=== PATIENT | female | born 1995 | race African-American/Black ===

== ENCOUNTER 2020-10-28 18:00 | Inpatient (IN) | payer OTHER ==
[~2020-10-28] VITALS: Ht 167.6 cm; Wt 93.2 kg
[2020-10-28] MEDS ORDERED: ACETAMINOPHEN 325 MG TABLET. PO PRN (18:45)
[2020-10-28] MEDS ORDERED: ONDANSETRON PF 4 MG/2 ML VIAL. IVP PRN (18:45)
[2020-10-28] MEDS ORDERED: MORPHINE SULFATE 4 MG/ML INJ. IV PRN (18:45)
[2020-10-28 18:55] VITALS: BP 112/61
[2020-10-28 18:57] VITALS: BP 117/74
--- NOTE | 2020-10-28 19:02 | NUR ---
Consult called to Dr. Burch. Message left with answering service
[2020-10-28] MEDS ORDERED: MULT-735 PO (19:09)
[2020-10-28] MEDS: IV DEXTROSE 5% - 0.9 % NACL 1,000 ML IV SCH (19:26)
[2020-10-28] MEDS: PIPERACILLIN/TAZOBACTAM 3.375 GM in IV NORMAL SALINE 50ML 50 ML IV SCH (19:30)
[2020-10-28] MEDS ORDERED: IV DEXTROSE 5 %-0.45 % NACL 1,000 ML IV SCH (20:00)
[2020-10-28] MEDS: LACTOBACILLUS RHAMNOSUS GG 1 CAPSULE. PO SCH (21:36)
[2020-10-28 23:18] VITALS: BP 119/80
[2020-10-29] VITALS (15 sets, daily range): BP systolic 115–140; BP diastolic 61–82
[2020-10-29] MEDS: PIPERACILLIN/TAZOBACTAM 3.375 GM in IV NORMAL SALINE 50ML 50 ML IV SCH ×4 (00:25→18:12)
[2020-10-29] MEDS: LACTOBACILLUS RHAMNOSUS GG 1 CAPSULE. PO SCH ×2 (07:25→20:47)
[2020-10-29] MEDS ORDERED: SUCCINYLCHOLINE 200 MG/10 ML VIAL. ONE ×2 (07:28)
[2020-10-29] MEDS ORDERED: PROPOFOL 10 MG/ML (20ML) VIAL. IV ONE ×2 (07:28)
[2020-10-29] MEDS ORDERED: ONDANSETRON PF 4 MG/2 ML VIAL. ONE ×2 (07:28)
[2020-10-29] MEDS ORDERED: NEOSTIGMINE METHYLSULFATE 5 MG/5 ML SYRINGE. ONE ×2 (07:28→09:35)
[2020-10-29] MEDS ORDERED: LIDOCAINE 2% PF 5 ML VIAL. ONE ×2 (07:28)
[2020-10-29] MEDS ORDERED: GLYCOPYRROLATE 1 MG/5 ML VIAL. ONE ×2 (07:28→09:35)
[2020-10-29] MEDS ORDERED: ROCURONIUM 50 MG/5 ML VIAL. ONE ×2 (07:28→07:29)
[2020-10-29] MEDS ORDERED: DEXAMETHASONE SOD PHOS 4 MG/ML VIAL ONE ×2 (07:28)
[2020-10-29] MEDS ORDERED: SEVOFLURANE 61 TO 120 MINUTES. IH ONE ×2 (07:28→09:23)
[2020-10-29] MEDS ORDERED: fentaNYL PF VIAL 100 MCG/2 ML VIAL ONE ×3 (07:28→10:14)
[2020-10-29] MEDS ORDERED: PROCHLORPERAZINE 10 MG/2 ML VIAL. IVP PRN (08:15)
[2020-10-29] MEDS ORDERED: fentaNYL PF VIAL 100 MCG/2 ML VIAL IVP PRN (08:15)
[2020-10-29] MEDS ORDERED: MORPHINE SULFATE 2 MG/ML INJ. IVP PRN (08:15)
[2020-10-29] MEDS ORDERED: IV RINGERS,LACTATED 1000ML 1,000 ML IV SCH (08:15)
[2020-10-29] MEDS ORDERED: HYDROmorphone 2 MG/ML VIAL IVP PRN (08:15)
[2020-10-29] MEDS ORDERED: BUPIVACAINE-EPI 0.25%-1:200000 MPF 30 ML VIAL. ONE (08:31)
--- NOTE | 2020-10-29 08:32 | PDOC2 ---
CONSULT Date of Consult Date of Consult DATE: 10/29/20 TIME: 08:29 Reason for Consult Reason for Consult: Abdominal pain Referring Physician Referring Physician: Shahab Identification/Chief Complaint Chief Complaint Abdominal pain Source Source: Chart review, Patient History of Present Illness Reason for Visit: 25-year-old female with 3-day history of abdominal pain mostly right-sided came to the emergency department at [facility] had a mildly elevated white count and low-grade fevers CT scan at that time showed dilated appendix with some periappendiceal fluid she was admitted to the hospital for observation her pain had not improved repeat CT scan was performed which showed slightly more fluid similar findings she was transferred to [facility] for evaluation. This morning she is feeling okay still having some right-sided abdominal pain Past Medical History Cardiovascular: No pertinent hx Pulmonary: No pertinent hx GI: No pertinent hx Heme/Onc: No pertinent hx Hepatobiliary: No pertinent hx Psych: No pertinent hx Rheumatologic: No pertinent hx Infectious disease: No pertinent hx ENT: No pertinent hx Renal/: No pertinent hx Endocrine: No pertinent hx Dermatology: No pertinent hx Past Surgical History Past Surgical History: No pertinent history Family History Family History: No Significant Social History Social History: Parent No ALCOHOL: none Drugs: None Lives: with Family Current Medications Current Medications Current Medications Acetaminophen (Tylenol) 650 mg PRN Q6HRS PRN PO MILD PAIN / TEMP > 100.3'F; Start 10/28/20 at 18:45 Dextrose/Sodium Chloride 1,000 ml @ 100 mls/hr Q10H IV ; Start 10/28/20 at 20:00; Stop 10/28/20 at 19:15; Status DC Lactobacillus Rhamnosus (Culturelle) 1 cap BID PO Last administered on 10/28/20at 21:36; Start 10/28/20 at 21:00 Morphine Sulfate (Morphine Sulfate) 4 mg PRN Q2HR PRN IV PAIN; Start 10/28/20 at 18:45 Ondansetron HCl (Zofran) 4 mg PRN Q6HRS PRN IVP NAUSEA/VOMITING; Start 10/28/20 at 18:45 Piperacillin Sod/ Tazobactam Sod 3.375 gm/Sodium Chloride 50 ml @ 100 mls/hr Q6HRS IV Last administered on 10/29/20at 06:22; Start 10/28/20 at 19:00 Dextrose/Sodium Chloride 1,000 ml @ 100 mls/hr Q10H IV Last administered on 10/28/20at 19:26; Start 10/28/20 at 20:00 Fentanyl Citrate (Fentanyl 2ml Vial) 25 mcg PRN Q5MIN PRN IVP MILD PAIN 1-3; Start 10/29/20 at 08:15; Stop 10/30/20 at 08:14 Fentanyl Citrate (Fentanyl 2ml Vial) 50 mcg PRN Q5MIN PRN IVP MODERATE PAIN 4- 6; Start 10/29/20 at 08:15; Stop 10/30/20 at 08:14 Morphine Sulfate (Morphine Sulfate) 1 mg PRN Q10MIN PRN IVP SEVERE PAIN 7-10; Start 10/29/20 at 08:15; Stop 10/30/20 at 08:14 Ringer's Solution 1,000 ml @ 30 mls/hr Q24H IV ; Start 10/29/20 at 08:15; Stop 10/29/20 at 20:14 Hydromorphone HCl (Dilaudid) 0.5 mg PRN Q10MIN PRN IVP SEVERE PAIN 7-10, 2nd CHOICE; Start 10/29/20 at 08:15; Stop 10/30/20 at 08:14 Prochlorperazine Edisylate (Compazine) 5 mg PACU PRN PRN IVP NAUSEA, MRX1; Start 10/29/20 at 08:15; Stop 10/30/20 at 08:14 Active Scripts Active Reported One-Daily Multi-Vitamin (Multivitamin) 1 Each Tablet 1 Tab PO DAILY 30 Days Allergies Allergies: Coded Allergies: ketorolac (Verified Allergy, Intermediate, 10/28/20) ROS General: YES: Malaise Gastrointestinal: Yes Nausea, Yes Abdominal Pain Physical Exam General: Alert, Oriented X3, Cooperative, mild distress HEENT: Atraumatic, EOMI Lungs: Clear to auscultation, Normal air movement Heart: Regular rate, No murmurs Abdomen: Normal bowel sounds, Soft, Other (Tender to palpation right lower quadrant no peritoneal signs) Extremities: No edema Skin: No significant lesion Neuro: Normal speech Psych/Mental Status: Mental status NL Vitals VITALS Vital Signs Date Time Temp Pulse Resp B/P (MAP) Pulse Ox O2 Delivery O2 Flow Rate FiO2 10/29/20 07:40 Room Air 10/29/20 03:18 97.9 81 16 125/61 (82) 99 97.9 Assessment/Plan Assessment/Plan Acute appendicitis plan laparoscopic appendectomy ANJALI ZACARIAS MD Oct 29, 2020 08:32
--- NOTE | 2020-10-29 09:42 | PDOC4 ---
Operative Note Operative Note Date: October 292020 at 939 Preoperative diagnosis: Acute appendicitis Postoperative diagnosis: Same Procedure: Laparoscopic appendectomy Surgeon: Marcin Specimen: Appendix Dictation: Patient is a 25-year-old female was mated to the hospital with right lower quadrant abdominal pain and equivocal CT scan findings. Procedure of laparoscopic appendectomy was explained to the patient detail risk benefits were also discussed including bleeding infection injury to intra-abdominal contents possible necessitating further open operations alternatives to this procedure also discussed with the patient who seemed to understand and gave a verbal and written consent to have the procedure performed. Patient was taken to the operating room placed in the supine position general anesthesia was initiated once patient was sleeping intubated her abdomen was prepped and draped usual sterile fashion using ChloraPrep. Area just below the umbilicus was injected qu arter percent Marcaine with epinephrine incision was made 11 blade scalpel and varies needle was placed within the abdomen creating pneumoperitoneum once this was complete 12 mm port was placed and a 5 mm camera is placed within the abdomen a 5 mm port was placed low in the midline and a 5 mm port was placed in the right midabdomen all under direct visualization. The appendix was grasped retracted towards the anterior abdominal wall a window was propagated the base of the appendix through the mesoappendix with a [place] dissector. An Endo JOSE LUIS stapler was used to staple and transect the base of the appendix a second load was used to staple and transect the mesoappendix. The appendix was then placed in Endo Catch bag moving the umbilicus right lower quadrant pelvis were irrigated and suctioned dry hemostasis deemed be appropriate the pneumoperitoneum was reduced all ports were removed the fascial defect at the umbilicus was closed with [id number] 0 Vicryl suture and skin was reapproximated all port sites for subcuticular Monocryl Mastisol Steri-Strips and island dressings were applied. Patient was awakened and extubated operating room taken to recovery in stable condition all sponge instrument needle counts listed as correct estimated blood loss 10 mL ANJALI ZACARIAS MD Oct 29, 2020 09:42
[2020-10-29] MEDS ORDERED: oxyCODONE/APAP 5/325 1 TAB TABLET PO PRN (09:45)
[2020-10-29] MEDS: fentaNYL PF VIAL 100 MCG/2 ML VIAL IVP PRN ×2 (10:20→10:33)
[2020-10-29] MEDS: IV DEXTROSE 5% - 0.9 % NACL 1,000 ML IV SCH ×2 (11:27→16:00)
[2020-10-29] MEDS: oxyCODONE/APAP 5/325 1 TAB TABLET PO PRN ×2 (13:14→20:47)
--- NOTE | 2020-10-29 14:07 | HP ---
ADMIT DATE: 10/28/2020 HISTORY OF PRESENT ILLNESS: The patient is a 25-year-old female patient who was seen initially at [facility] Emergency Room with abdominal pain, mostly on the right side associated with some nausea, but no vomiting. She has had a CT scan done there, which showed that she has a dilated appendix with some periappendiceal fluid and she was admitted to [facility] for observation. She did spike a temperature up to 101.2 there. Her initial white cell count was slightly elevated at 13,500. Repeat CT scan shows slightly more fluid and similar finding and was transferred to [facility] to be seen by the surgical team as I spoke with Dr. Burch, who recommended transferring her to [facility]. PAST MEDICAL HISTORY: Unremarkable. PAST SURGICAL HISTORY: Significant for . FAMILY HISTORY: Noncontributory. SOCIAL HISTORY: She lives with her . She has a son. She does not smoke, drink alcohol or use recreational drugs. She is a [id number] mom. ALLERGIES: SHE IS ALLERGIC TO KETOROLAC. MEDICATIONS: She is on [id number] Tylenol. PHYSICAL EXAMINATION: GENERAL: On arrival to the [facility], the patient looked well and was clearly in no apparent respiratory distress. No pallor, jaundice, cyanosis or thyromegaly. No jugular venous distention. No limb edema. VITAL SIGNS: Her heart rate was 65, blood pressure was 140/82, temperature was 97.5, respiratory rate was 18, and oxygen saturation was 96%. HEAD, EYES, EARS, NOSE, AND THROAT: Normocephalic, atraumatic. NECK: Supple. HEART: Showed normal first and second heart sound. No gallop or murmur. CHEST: Clear to auscultation. No crepitation or rhonchi. ABDOMEN: Distended, soft, with tenderness mostly in the right lower quadrant. NEUROLOGIC: She was grossly intact. ASSESSMENT: A 25-year-old with findings of CT scan suggestive of acute appendicitis. We have consulted Dr. Burch. Meanwhile, continue the patient n.p.o., on IV fluid, IV antibiotic and pain medication. ELIZABETH/QUINTIN/SONiki DR: ELIZABETH/laquita TID: [id number]
[2020-10-30] MEDS: IV DEXTROSE 5% - 0.9 % NACL 1,000 ML IV SCH (02:00)
[2020-10-30 03:32] VITALS: BP 123/61
[2020-10-30] MEDS: PIPERACILLIN/TAZOBACTAM 3.375 GM in IV NORMAL SALINE 50ML 50 ML IV SCH ×2 (05:59)
[2020-10-30 07:00] VITALS: BP 119/74
[2020-10-30 07:53] LABS: BASO % 0 % (0-3); EOS # 0.1 x10^3/uL (0.0-0.7); EOS % 1 % (0-3); HEMATOCRIT 35.4 % (36.0-47.0); HEMOGLOBIN 12.2 g/dL (12.0-15.5); LYMPH # 2.3 x10^3/uL (1.0-4.8); LYMPH % 26 % (24-48); MEAN CORPUSCULAR HEMOGLOBIN 30 pg (25-35); MEAN CORPUSCULAR HGB CONC 34 g/dL (31-37); MEAN CORPUSCULAR VOLUME 88 fL (79-100); MONO # 0.7 x10^3/uL (0.0-1.1); MONO % 8 % (0-9); NEUT # 5.7 x10^3/uL (1.8-7.7); NEUT % 65 % (31-73); PLATELET COUNT 265 x10^3/uL (140-400); RED BLOOD COUNT 4.04 x10^6/uL (3.50-5.40); RED CELL DISTRIBUTION WIDTH 13.3 % (11.5-14.5); WHITE BLOOD COUNT 8.8 x10^3/uL (4.0-11.0)
[2020-10-30] MEDS ORDERED: OXYC-325 PO (08:21)
[2020-10-30] MEDS: oxyCODONE/APAP 5/325 1 TAB TABLET PO PRN (08:30)
[2020-10-30] MEDS: LACTOBACILLUS RHAMNOSUS GG 1 CAPSULE. PO SCH (08:30)
--- NOTE | 2020-10-30 08:32 | DS ---
DATE OF DISCHARGE: 10/30/2020 The patient is a 25-year-old [place] female patient who was seen originally at [facility] where CT scan was suspicious for acute appendicitis. She was observed and repeat CT scan continued to show the same abnormality. She did spike temperature, has mild leukocytosis and was transferred and was seen by the surgical team and underwent laparoscopic appendectomy yesterday. Her postoperative course was uncomplicated. She did very well. She has been tolerating her food, has been up and about and a decision was made to discharge her home. PHYSICAL EXAMINATION: GENERAL: When I examined her this morning, she looked well and was clearly in no apparent respiratory distress. No pallor, jaundice, cyanosis or thyromegaly. No jugular venous distention. No limb edema. VITAL SIGNS: Her heart rate was 61, blood pressure is 123/61, temperature 97.9, respiratory rate was 16 and oxygen saturation was 98%. Rest of clinical exam is stable. LABORATORY DATA: Her lab work this morning showed a white cell count of 8800, hemoglobin 12, hematocrit 35, MCV 88 and platelet count 265,000. DISCHARGE MEDICATIONS: The patient was discharged home to continue on Percocet 5/325 one tablet every 6 hours. FINAL DISCHARGE DIAGNOSES: Acute appendicitis, status post laparoscopic appendectomy. BERTO DR: Kamryn TID: [id number]
--- NOTE | 2020-10-30 09:12 | PDOC ---
SURGICAL PROGRESS NOTE DATE: 10/30/20 TIME: 09:11 Subjective Patient doing well tolerating diet Vital Signs Vital Signs Date Time Temp Pulse Resp B/P (MAP) Pulse Ox O2 Delivery O2 Flow Rate FiO2 10/30/20 08:30 Room Air 10/30/20 07:00 97.9 65 18 119/74 (89) 98 97.9 10/29/20 10:18 10 I&O Intake and Output 10/30/20 07:00 Intake Total 1100 ml Output Total 10 ml Balance 1090 ml Intake Oral 500 ml IV Total 600 ml Output Estimated Blood Loss 10 ml # Voids 6 PATIENT HAS A ANDERSON: No General: Alert, Oriented X3, Cooperative, mild distress Abdomen: Normal bowel sounds, Soft, Other (Mild incisional tenderness wounds clean dry and intact) Labs Laboratory Tests Test 10/30/20 07:15 White Blood Count 8.8 x10^3/uL (4.0-11.0) Red Blood Count 4.04 x10^6/uL (3.50-5.40) Hemoglobin 12.2 g/dL (12.0-15.5) Hematocrit 35.4 % (36.0-47.0) Mean Corpuscular Volume 88 fL (79-100) Mean Corpuscular Hemoglobin 30 pg (25-35) Mean Corpuscular Hemoglobin Concent 34 g/dL (31-37) Red Cell Distribution Width 13.3 % (11.5-14.5) Platelet Count 265 x10^3/uL (140-400) Neutrophils (%) (Auto) 65 % (31-73) Lymphocytes (%) (Auto) 26 % (24-48) Monocytes (%) (Auto) 8 % (0-9) Eosinophils (%) (Auto) 1 % (0-3) Basophils (%) (Auto) 0 % (0-3) Neutrophils # (Auto) 5.7 x10^3/uL (1.8-7.7) Lymphocytes # (Auto) 2.3 x10^3/uL (1.0-4.8) Monocytes # (Auto) 0.7 x10^3/uL (0.0-1.1) Eosinophils # (Auto) 0.1 x10^3/uL (0.0-0.7) Basophils # (Auto) 0.0 x10^3/uL (0.0-0.2) Laboratory Tests Test 10/30/20 07:15 White Blood Count 8.8 x10^3/uL (4.0-11.0) Red Blood Count 4.04 x10^6/uL (3.50-5.40) Hemoglobin 12.2 g/dL (12.0-15.5) Hematocrit 35.4 % (36.0-47.0) Mean Corpuscular Volume 88 fL (79-100) Mean Corpuscular Hemoglobin 30 pg (25-35) Mean Corpuscular Hemoglobin Concent 34 g/dL (31-37) Red Cell Distribution Width 13.3 % (11.5-14.5) Platelet Count 265 x10^3/uL (140-400) Neutrophils (%) (Auto) 65 % (31-73) Lymphocytes (%) (Auto) 26 % (24-48) Monocytes (%) (Auto) 8 % (0-9) Eosinophils (%) (Auto) 1 % (0-3) Basophils (%) (Auto) 0 % (0-3) Neutrophils # (Auto) 5.7 x10^3/uL (1.8-7.7) Lymphocytes # (Auto) 2.3 x10^3/uL (1.0-4.8) Monocytes # (Auto) 0.7 x10^3/uL (0.0-1.1) Eosinophils # (Auto) 0.1 x10^3/uL (0.0-0.7) Basophils # (Auto) 0.0 x10^3/uL (0.0-0.2) Assessment/Plan Status post laparoscopic appendectomy doing quite well afebrile normal white count stable from surgical standpoint to be discharged follow-up 2 weeks Justicifation of Admission Dx: Justifications for Admission: Justification of Admission Dx: N/A ANJALI ZACARIAS MD Oct 30, 2020 09:12
--- NOTE | 2020-10-30 09:40 | NUR ---
Pt discharged home with self care. Discharge instructions and prescriptions discussed. Pt verbalized understanding. IV removed. Belongings were packed by patient. Assisted to wheelchair and was secured in car with family.
--- NOTE | 2020-11-01 15:24 | PATHOLOGY ---
[facility] Accession Number: [id number] . 01 Material submitted: . appendix - APPENDIX . 01 Clinical history: . LAPAROSCOPIC APPENDECTOMY . 02 Diagnosis: Appendix, laparoscopic appendectomy: - Acute and chronic appendicitis of distal appendix. ([facility]:lucretia; 11/01/2020) [facility] 11/01/2020 1408 Local . 02 Comment: There is no evidence of perforation. ([facility]:lucretia; 11/01/2020) . 02 Electronically signed: . Isidro Snowden MD, Pathologist NPI- [id number] . 01 Gross description: . Fixative: Formalin Labeled: [address], appendix Perforation: None Appendix size: 7.2 cm in length by 0.8 cm in diameter Mesoappendix: Up to 2.0 cm thick Proximal margin: Inked black Serosa: Coe-castillo and dusky without identifiable fibrinous exudate Mucosa: Castillo and unremarkable Luminal diameter: Ranging from 0.1 cm to 0.3 cm Wall thickness: 0.3 cm Lesions/abnormalities: None . A1-A3: Crisis Intervention Counselor sections of appendix to incldue the proximal margin (submitted en face) and entirety of distal tip. ([place]; 10/31/2020) DKA/DKA 10/31/2020 1642 Local . 02 Pathologist provided ICD-10: K35.80 . 02 CPT . 294601 Specimen Comment: A courtesy copy of this report has been sent to [phone], [phone] Specimen Comment: [id number] Specimen Comment: Report sent to / DR NAQVI Performed at: [address], [place], [place] [id number] MD Stephan Baez MD Phone: [phone] Performed at: 02 [facility] [address] [place], [place] [id number] MD Isidro Snowden MD Phone: [phone]
== END 2020-10-30 09:42 | disposition home or self-care (01) | DRG 343 ==
LOC: 4 NORTH 18:00
PROVIDERS: ADMIT Internal Medicine; ATTEND Internal Medicine
PROC: 0DTJ4ZZ Resection of Appendix, Percutaneous Endoscopic Approach (ICD-10-PCS; principal; 2020-10-28)
DX: K35.80 Unspecified acute appendicitis (principal); Z88.8 Allergy status to other drugs, medicaments and biological substances; Z79.899 Other long term (current) drug therapy; D72.829 Elevated white blood cell count, unspecified
CPT/HCPCS: 36415; 85025; 88304; A4314; A4930; J0330; J1100; J2405; J2543; J2704; J2710; J3010; J3490; J7042; G0378